=== PATIENT | male | born 1995 | race Caucasian/White ===

== ENCOUNTER 2021-10-07 09:20 | Emergency (ER) | payer OTHER, SELFPAY ==
[2021-10-07 09:26] VITALS: BP 137/82; PULSE 105; RESP 20; TEMP 36.8; O2SAT 98
--- NOTE | 2021-10-07 10:05 | ED.URI ---
HPI - URI/Sore Throat General Source: patient and RN notes reviewed History of Present Illness HPI Narrative: This is a patient who presented to urgent care with complaints of a fever cough and chest tightness due to coughing. The patient denies SOB, CP, palpitation, extremity numbness, lightheadedness, dizziness, constipation, diarrhea, chills, or fever. Related Data Allergies Allergy/AdvReac Type Severity Reaction Status Date / Time No Known Allergies Allergy Verified 10/07/21 09:59 Review of Systems Review of Systems: All systems reviewed & are unremarkable except as noted in HPI and below PMFSH Family History Family History (Updated 10/29/21 @ 10:50 by MARY ANNE Waldron) Other Family history non-contributory Exam Narrative: GENERAL: This is a well-nourished, well-developed patient, in no apparent distress. HEAD: normocephalic, atraumatic. EYES: PERRL. Sclera clear/white. Vision is grossly intact. EARS: External ears normal, auditory canals clear and without drainage, TMs normal without perforation. Hearing grossly intact. NOSE: External nose normal with no obvious nasal discharge, nares without redness, no rhinorrhea. THROAT: Mucous membranes moist, posterior pharynx clear. NECK: Neck supple, non-tender without lymphadenopathy, masses or thyromegaly. CARDIOVASCULAR: Regular rate and rhythm without murmurs, gallops, or rubs. RESPIRATORY: Clear to auscultation. Breath sounds equal bilaterally. No wheezes, rales, or rhonchi. GASTROINTESTINAL: Abdomen soft, non-tender, nondistended. Bowel sounds are active. No hepato-splenomegaly, or palpable masses. No guarding. SKIN: warm, intact with no suspicious lesions or rash, good texture and turgor. NEURO: awake, alert, and oriented to person, place and time. There were no obvious focal neurologic abnormalities. Steady gait EXTREMITIES: Normal range of motion. No edema. No calf tenderness. Negative Homans sign bilaterally. BACK: Nontender without deformity or crepitance. No flank tenderness. Course Course Emergency Course: Patient treated for viral illness with [id number] meds Vital Signs Vital signs: Vital Signs Temperature 98.2 F 10/07/21 09:26 Pulse Rate 105 H 10/07/21 09:26 Respiratory Rate 20 10/07/21 09:26 Blood Pressure 137/82 10/07/21 09:26 Pulse Oximetry 98 10/07/21 09:26 Temperature 98.2 F 10/07/21 09:26 Pulse Rate 105 H 10/07/21 09:26 Respiratory Rate 20 10/07/21 09:26 Blood Pressure 137/82 10/07/21 09:26 Pulse Oximetry 98 10/07/21 09:26 MDM - URI/Sore Throat Differential Diagnosis Differential diagnosis: Likely upper respiratory infection, viral infection and pharyngitis Discharge Plan Discharge Clinical Impression: Viral infection Patient Disposition: Home, Self-Care Condition: Stable Instructions: Antibiotic Form, Viral Syndrome (ED) Additional Instructions: This is likely viral illness, no antibiotic is needed at this time. Treatment is aimed toward your specific symptoms. You must treat your symptoms in order to feel better while the virus runs it's course. Recommend antihistamine such as Benadryl at night time and Claritin/Zyrtec/Ayanna during the day Use inhaler as needed for cough, wheezing, shortness of breath or chest tightness. -Hot steamy showers in the morning to help open up your sinuses -Hot tea with lemon and honey. A teaspoon of honey may help as a cough suppressant. -Increase fluid intake Frequent hand washing or hand digital designer is one of the best ways to prevent spread of infection. Please schedule a followup visit with your personal physician for further evaluation and treatment within 3-5days. Including recheck and discussion of your blood pressure. If your symptoms persist, change or worsen significantly before you can contact your personal physician then please, without delay, go to the emergency department for further evaluation. You will need to remain quarantine until
== END 2021-10-07 10:15 | disposition home or self-care (01) ==
PROVIDERS: Emergency Provider Nurse Practitioner
DX: B34.9 Viral infection, unspecified (principal); Z20.822 Contact with and (suspected) exposure to COVID-19
CPT/HCPCS: 87804; 99213; G0463

== ENCOUNTER → 2021-10-08 02:06 | Outpatient (CLI) | payer OTHER, SELFPAY ==
[2021-10-09 03:58] LABS: SARS-CoV-2 RNA PCR Negative
== END ==
PROVIDERS: Visit Provider Nurse Practitioner
DX: R68.89 Other general symptoms and signs (principal); Z20.822 Contact with and (suspected) exposure to COVID-19
CPT/HCPCS: C9803; U0003; U0005

== ENCOUNTER 2021-11-18 14:58 | Outpatient (CLI) | payer OTHER, SELFPAY ==
[2021-11-18 18:48] LABS: Hematocrit 43.2 % (42.0-52.0); Hemoglobin 15.6 g/dL (14.0-18.0); Mean Corpuscular HGB Conc 36.1 g/dl (32-36); Mean Corpuscular Hemoglobin 29.3 pg (26-34); Mean Corpuscular Volume 81.1 fl (80-100); Mean Platelet Volume 10.1 fl (7.4-10.4); Platelet Count Result 300 k/mm3 (150-375); Red Blood Count 5.33 M/mm3 (4.6-6.20); Red Cell Distribution Width 12.3 % (11.5-14.5); White Blood Count 7.3 K/mm3 (4.5-10.0)
[2021-11-18 18:53] LABS: Alanine Aminotransferase 120 U/L (4-50); Albumin Level 4.4 g/dL (3.5-5.1); Alkaline Phosphatase 70 U/L (38-126); Anion Gap 8 mmol/L (8-16); Aspartate Amino Transferase 56 U/L (17-59); Bilirubin,Total 1.3 mg/dL (0.2-1.3); Blood Urea Nitrogen 10 mg/dL (9-20); Calcium 9.8 mg/dL (8.4-10.2); Carbon Dioxide 23 mmol/L (22-30); Chloride 107 mmol/L (98-107); Cholesterol 141 mg/dL (0-200); Estimated Glomerular Filt Rate > 60; Glucose 116 mg/dL (65-110); HDL Direct 38 mg/dL; Potassium 4.4 mmol/L (3.4-5.0); Sodium 138 mmol/L (137-145); Triglycerides 100 mg/dL (<150)
[2021-11-18 19:05] LABS: LDL Cholesterol Direct 86 mg/dL
[2021-11-18 19:08] LABS: Hemoglobin A1C 5.6 % (<5.7)
== END 2021-11-18 14:59 | disposition home or self-care (01) ==
LOC: ANHBWCLAB 15:01
PROVIDERS: PCP Family Medicine; Visit Provider Family Medicine
DX: Z00.00 Encounter for general adult medical examination without abnormal findings (principal); E66.9 Obesity, unspecified
CPT/HCPCS: 36415; 80053; 80061; 83036; 85027

== ENCOUNTER 2021-12-27 13:54 | Outpatient (CLI) | payer OTHER, SELFPAY ==
[2021-12-27 18:54] LABS: Alanine Aminotransferase 69 U/L (4-50); Albumin Level 4.3 g/dL (3.5-5.1); Alkaline Phosphatase 64 U/L (38-126); Aspartate Amino Transferase 33 U/L (17-59); Bilirubin,Total 0.5 mg/dL (0.2-1.3)
[2021-12-27 19:25] LABS: Hepatitis B Surface Antigen Negative (Negative)
[2021-12-27 19:31] LABS: HAV RESULT Negative (Negative); Hepatitis B Core IgM Result Negative (Negative)
[2021-12-27 19:42] LABS: Hepatitis C Virus Antibody Negative (Negative)
== END 2021-12-27 13:55 | disposition home or self-care (01) ==
LOC: ANHBWCLAB 13:55
PROVIDERS: PCP Family Medicine; Visit Provider Family Medicine
DX: E66.9 Obesity, unspecified (principal); R74.8 Abnormal levels of other serum enzymes
CPT/HCPCS: 36415; 80074; 80076

== ENCOUNTER 2022-02-20 14:45 | Emergency (ER) | payer OTHER, SELFPAY ==
[2022-02-20 14:49] VITALS: BP 133/81; PULSE 101; RESP 16; TEMP 36.9; O2SAT 99
--- NOTE | 2022-02-20 14:50 | ED.URI ---
HPI - URI/Sore Throat General Chief Complaint: Upper Respiratory Infection Stated Complaint: nausea fever diahrrea sore throat Time Seen by Provider: 02/20/22 15:10 Source: patient and RN notes reviewed Mode of arrival: ambulatory Limitations: no limitations History of Present Illness HPI Narrative: 26-year-old male presents with concern for sore throat, cough, body aches, headache, fever, chills, nausea with 2 episodes of vomiting and 2 episodes of diarrhea. Reports his temperature was 104.2. He reports his lung feels tight and it seems hard to breathe at times. He reports symptoms started last night. He reports he is taken ibuprofen. Denies other [id number] intervention. MD elicited complaint: cough, sore throat and nasal congestion Related Data Allergies Allergy/AdvReac Type Severity Reaction Status Date / Time tetanus and diphtheria Allergy Unknown Verified 11/18/21 13:54 toxoids Review of Systems Review of Systems: CONSTITUTIONAL: Reports malaise, chills, sweats, fever. EYES: Denies visual changes, redness, or discharge. ENT: Reports rhinorrhea, congestion, sinus pain,and sore throat. CARDIOVASCULAR: Denies chest pain, palpitations, or edema. RESPIRATORY: Reports cough. Denies dyspnea. GASTROINTESTINAL: Denies abdominal pain. Reports nausea, vomiting, diarrhea SKIN: Denies rash or itching. MUSCULOSKELETAL: Reports myalgia. NEUROLOGIC: Reports headache. All systems reviewed & are unremarkable except as noted in HPI and below PMFSH Family History Family History Father Prediabetes Mother Diabetes mellitus Other Family history non-contributory Social History Social History Smoking status: Never smoker Alcohol intake: current Substance use: never Comments At time of signature, agree with nursing past medical, surgical, social and family history. There is no relevant family history pertinent to the presenting complaint Exam Narrative: GENERAL: Nontoxic-appearing and in no acute distress. HEAD: Normocephalic EYES: PERRLA, conjunctivae clear ENT: Nares clear, turbinates edematous and erythematous, clear discharge. Mucous membranes moist. TM pearly carter with dull light reflex bilaterally; no tragal tenderness. Oropharynx not erythematous without lesions. Tonsils not enlarged and without exudate, no drooling, no hoarseness, no trismus, uvula midline. NECK: Supple. No lymphadenopathy CHEST: Clear to auscultation, breath sounds equal. No wheezing, rhonchi, rales, or stridor. No respiratory distress, speaks in full sentences. HEART: Regular rate and rhythm. No murmur heard. SKIN: Warm, dry, no rash. NEURO: Alert and oriented x3. PSYCH: Normal mood and affect Course Course Emergency Course: Patient is aware of diagnosis, understands and agrees to treatment plan. Anticipatory guidance given. Patient agrees to follow-up as directed and is aware of reasons to seek care at the emergency department. Portions of this record may have been created with voice recognition software Level of Care: Express Care Visit Vital Signs Vital signs: Reviewed. MDM - URI/Sore Throat MDM Narrative Medical decision making narrative: Differential diagnosis considered: English virus, strep pharyngitis, allergic rhinitis, upper respiratory tract infection, sinusitis, rhinosinusitis, nasopharyngitis. viral pharyngitis, otitis media, otitis externa, pneumonia, bronchitis, viral cough syndrome, viral syndrome, and influenza. Exam findings show no acute concerns or changes; patient is non-toxic appearing and is in no distress. Patient is appropriate for outpatient treatment and follow-up. Lab Data Attestation: I reviewed the patient's lab results. Critical Care Time Critical Care Time Critical Care Time: No Discharge Plan Discharge Clinical Impression: COVID-19 Patient Disposition: Home, Self-Care Condition:
== END 2022-02-20 15:28 | disposition home or self-care (01) ==
PROVIDERS: Emergency Provider Nurse Practitioner; PCP Family Medicine
DX: U07.1 COVID-19 (principal)
CPT/HCPCS: 87081; 87426; 87804; 87880; 99213; C9803; G0463

== ENCOUNTER 2024-08-24 15:45 | Emergency (ER) | payer OTHER, SELFPAY ==
--- NOTE | ~2024-08-24 | XR_ITS ---
3 VIEWS LUMBAR SPINE Ordering provider: Lilly Quintero NP History: . felt pop when bending over, bilateral stiffness/pain . Comparison: None. FINDINGS: VERTEBRAL BODIES: No visible fracture or subluxation. DISK SPACES: Normal. SOFT TISSUES: Normal. IMPRESSION: No acute osseous abnormality lumbar spine. Reviewed, dictated and finalized at location A. RANCE AGENCY MANAGER
[2024-08-24 15:53] VITALS: BP 135/91; PULSE 88; RESP 20; TEMP 37.1; O2SAT 99
--- NOTE | 2024-08-24 16:12 | ED.BACK ---
HPI - Back Pain/Injury General Chief Complaint: Back Pain/Injury Stated Complaint: Back Pain Time Seen by Provider: 08/24/24 16:10 Source: patient, family, RN notes reviewed and old records reviewed Mode of arrival: ambulatory Limitations: no limitations History of Present Illness HPI Narrative: 29 year old male accompanied by spouse presents to express care with complaints of bending over sink brushing his teeth and when he bent over he felt a pop in his left lower back states it is difficult to ambulate. Patient reports pain is in left lower back and it radiates to leg, Patient has no SI pain noted on examination. Denies any saddle paraesthesia. Patient reports no history of previous back pain or any known recent injury. Patient has not taken any OTC medication for his discomfort before coming to clinic. MD elicited complaint: back pain Pertinent past history: other (none) Onset (ago): hour(s) (within past hour) Pain scale (0-10): 3 Location: lumbar spine Radiation: other (left leg) Exacerbating factors: movement and other (changing positions) Treatments prior to arrival: other (none) Work related injury: No Related Data Allergies Allergy/AdvReac Type Severity Reaction Status Date / Time tetanus and diphtheria AdvReac Severe Other Verified 08/24/24 16:00 toxoids Review of Systems Review of Systems: CONSTITUTIONAL: Denies fever, chills, or sweats. CARDIOVASCULAR: Denies chest pain, palpitations, or edema. RESPIRATORY: Denies cough or dyspnea. GASTROINTESTINAL: Denies abdominal pain, nausea, vomiting, or diarrhea. GENITOURINARY: Denies dysuria or hematuria. SKIN: Denies rash or itching. MUSCULOSKELETAL: Reports left lower back pain goes to leg also. or myalgia. NEUROLOGIC: Denies headache, numbness, or weakness. All systems reviewed & are unremarkable except as noted in HPI and below PMFSH Past Medical History Medical History Obesity Otitis externa Family History Family History Father Prediabetes Mother Diabetes mellitus Other Family history non-contributory Social History Social History Smoking status: Never smoker Alcohol intake: current Substance use: never Living arrangements: with family Gender identity (if verbalized by the patient): Male Comments At time of signature, agree with nursing past medical, surgical, social and family history. There is no relevant family history pertinent to the presenting complaint Exam Narrative: GENERAL: Well-appearing, well-nourished, and in no acute distress. HEAD: Normocephalic, atraumatic. EYES: PERRLA and EOMI. NECK: Supple. No lymphadenopathy. CHEST: Clear to auscultation. No respiratory distress. SAO2 99% on room air HEART: Regular rate and rhythm. Distal pulses palpable and equal, cap refill <3 seconds ABDOMEN: Soft, nontender, nondistended, normal active bowel sounds, no palpable or pulsatile masses. No CVA tenderness MUSCULOSKELETAL: Normal range of motion and strength in all extremities; 5/5 strength with hip flexion and extension, dorsiflexion and extension, knee flexion and extension, plantar flexion and extension. Normal sensation in dermatomal distributions with sensitivity to light touch and pain. No midline back tenderness to palpation. No paraspinal tenderness. Transfers from lying to sitting to standing slowly with some discomfort, sciatica left leg SKIN: Warm, dry, no rash. No ecchymosis, erythema, open wounds to back. NEURO: No focal deficits. Alert and oriented x3. Reflexes intact. Normal gait but guarded PSYCH: Normal mood and affect Course Course Emergency Course: Patient is aware of diagnosis, understands and agrees to treatment plan. Anticipatory guidance given. Patient agrees to follow-up as directed and is aware of reasons to seek care at the emergency department. Portions of this record may have been created with voice recognition software Level of Care: Express Care Visit Vital Signs Vital signs: Vital Signs Temperature 37.1 C 08/24/24 15:53 Pulse Rate 88 08/24/24 15:53 Respiratory Rate 20 08/24/24 15:53 Blood Pressure 135/91 H 08/24/24 15:53 Pulse Oximetry 99 08/24/24 15:53 Oxygen Delivery Room Air 08/24/24 15:53 Temperature 37.1 C 08/24/24 15:53 Pulse Rate 88 08/24/24 15:53 Respiratory Rate 20 08/24/24 15:53 Blood Pressure 135/91 H 08/24/24 15:53 Pulse Oximetry 99 08/24/24 15:53 Oxygen Delivery Room Air 08/24/24 15:53 Reviewed MDM - Back Pain/Injury MDM Narrative Medical decision making narrative: No risk factors or findings concerning for epidural abscess, diskitis, vertebral osteomyelitis, cord compression, cauda equina, vertebral fracture or bone malignancy, AAA, or pyelonephritis. Patient instructed to consider further imaging and workup through their primary care physician as an outpatient if symptoms persist. Differential Diagnosis Differential diagnosis: Likely lumbar radiculopathy, sciatica (left), strain of lumbar region and other (pain left lower back) Medical Records Attestation: I reviewed the patient's medical records. Imaging Data Attestation: I personally reviewed and interpreted this imaging study as follows: My impression: no osseous abnormalitylumbar spine Radiologist's impression: [address] [email or web address] [address] XRay Report Signed Patient: Hayden Brady : 1995 MR#: [id number] Age: 29 Acct:[id number] Loc: [facility] ADM Date: 08/24/24Attending Dr: Ordering Physician: Lilly Quintero APRN Date of Service: 08/24/24 Procedure(s): XR lumbar spine 2-3V Accession Number(s): [id number] cc: Toan Bernal MD; Lilly Quintero APRN~ 3 VIEWS LUMBAR SPINE Ordering provider: Lilly Quintero NP History: . felt pop when bending over, bilateral stiffness/pain . Comparison: None. FINDINGS: VERTEBRAL BODIES: No visible fracture or subluxation. DISK SPACES: Normal. SOFT TISSUES: Normal. IMPRESSION: No acute osseous abnormality lumbar spine. Reviewed, dictated and finalized at location A. FACTURING TECH Dictated By: Sina Rock MD 08/24/24 1640 Signed By: <Electronically signed by Sina Rock MD in OV> Critical Care Time Critical Care Time Critical Care Time: No Discharge Plan Discharge Clinical Impression: Low back pain, Sciatica Patient Disposition: Home, Self-Care Condition: Stable Instructions: Antibiotic Form, Low Back Strain (ED) Additional Instructions: Ice and heat to the area for 20-30 minutes Gentle stretching exercises Gentle massage Caution with lifting, bending, stooping, twisting Avoid pushing, pulling take muscle relaxants as directed--caution drowsiness and no driving or alcohol Anti-inflammatory medicine as directed--take with food He may take the muscle relaxant and anti-inflammatory at the same time Follow-up with your PCP if not improving in 5-7 days If your symptoms persist, change or worsen significantly before you can contact your personal physician then please, without delay, go to the emergency department for further evaluation. Follow-up with PCP in 7-10 days or sooner if needed Follow up with PCP soon in regards to your blood pressure which is elevated above threshold for referral. Blood pressure above 120/80 may indicate pre-hypertension. 135/91 Prescriptions: New prednisone 20 mg tablet 20 mg PO BID Qty: 10 0RF Rx Instructions: am and early pm with food cyclobenzaprine 10 mg tablet 10 mg PO TID Qty: 14 0RF Rx Instructions: no driving or operating machinery while taking this medication absolutely no alcohol while taking this medication Follow-up/Referrals: Toan Bernal MD [Primary Care Provider] - Stand Alone Forms: Work/School Release IP Time of Disposition: 17:02 Quality Amberly Coma Scale Eyes: Open Verbal: Oriented and Alert Motor: Follows Commands Amberly Coma Total Score: 15
== END 2024-08-24 17:07 | disposition home or self-care (01) ==
PROVIDERS: Emergency Provider Registered Nurse; PCP Family Medicine
DX: M54.50 Low back pain, unspecified (principal); M54.32 Sciatica, left side; E66.9 Obesity, unspecified; Z68.41 Body mass index [BMI] 40.0-44.9, adult
CPT/HCPCS: 72100; 99213; G0463

== ENCOUNTER 2025-03-01 09:03 | Emergency (ER) | payer OTHER, SELFPAY ==
[2025-03-01 09:05] VITALS: BP 144/88; PULSE 77; RESP 20; TEMP 36.2; O2SAT 100
--- NOTE | 2025-03-01 09:23 | ED.BACK ---
HPI - Back Pain/Injury General Chief Complaint: Back Pain/Injury Stated Complaint: Low Back Pain Time Seen by Provider: 03/01/25 09:23 Source: patient Mode of arrival: ambulatory Limitations: no limitations History of Present Illness HPI Narrative: 29 y/o male presented for c/o mid low back pain x2 days. 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 States he did this using different body positions. Pain is minimal at rest/sitting, worse when twisting or standing from a seated position. Denies pain radiating into the hips or legs, numbness, tingling, weakness of the lower extremities, or change in gait, saddle paresthesia or loss of bowel or bladder. Took occasional ibuprofen. Related Data Allergies Allergy/AdvReac Type Severity Reaction Status Date / Time tetanus and diphtheria AdvReac Severe Other Verified 03/01/25 09:13 toxoids Review of Systems Review of Systems: CONSTITUTIONAL: Denies body aches, fever, chills EYES: Denies visual changes CARDIOVASCULAR: Denies chest pain, palpitations, or edema. RESPIRATORY: Denies cough or dyspnea. GASTROINTESTINAL: Denies abdominal pain, nausea, vomiting, or diarrhea. SKIN: Denies rash, itching, or wounds. MUSCULOSKELETAL: reports back pain NEUROLOGIC: Denies headache, numbness, tingling, or weakness. All systems reviewed & are unremarkable except as noted in HPI and below PMFSH Past Medical History Medical History Obesity Otitis externa Family History Family History Father Prediabetes Mother Diabetes mellitus Other Family history non-contributory Social History Social History Smoking status: Never smoker Alcohol intake: current Substance use: never Living arrangements: with family Gender identity (if verbalized by the patient): Male Comments At time of signature, I have reviewed and agree with nursing past medical, surgical, social and family history unless otherwise noted. Please see nursing chart for further information. There is no relevant family history pertinent to the presenting complaint Exam Narrative: GENERAL: Well-appearing NECK: Supple. full ROM CHEST: Speaks in full sentences. No respiratory distress. HEART: Regular rate and rhythm. Normal and equal peripheral pulses. MUSC: No Vertebral point tenderness. Bilateral lumbar paraspinal tenderness with deep palpation. BLEs with normal strength and sensation, normal range of motion. endorses pain to low back with movement. No ecchymosis, No open wounds or bruising. alignment normal, pulse palpable and equal bilaterally, skin warm, dry, pink. Capillary refill less than 3 seconds. Gait steady. SKIN: Warm, dry, no rash. NEURO: Alert and oriented x3. Course Course Emergency Course: Patient is aware of diagnosis, understands and agrees to treatment plan. Anticipatory guidance given. Patient agrees to follow-up as directed and is aware of reasons to seek care at the emergency department. Portions of this record may have been created with voice recognition software Level of Care: Express Care Visit Vital Signs Vital signs: Vital Signs Temperature 97.2 F L 03/01/25 09:05 Pulse Rate 77 03/01/25 09:05 Respiratory Rate 20 03/01/25 09:05 Blood Pressure 144/88 H 03/01/25 09:05 Pulse Oximetry 100 03/01/25 09:05 Oxygen Delivery Room Air 03/01/25 09:05 Temperature 97.2 F L 03/01/25 09:05 Pulse Rate 77 03/01/25 09:05 Respiratory Rate 20 03/01/25 09:05 Blood Pressure 144/88 H 03/01/25 09:05 Pulse Oximetry 100 03/01/25 09:05 Oxygen Delivery Room Air 03/01/25 09:05 Reviewed MDM - Back Pain/Injury MDM Narrative Medical decision making narrative: Discussed physical exam findings consistent with low back strain. Reviewed prescriptions. Pressure decision making deferred imaging at this time. Advised supportive measures and s/s to go to the ER. Pt is stable and appropriate for outpt treatment and follow up with pcp. Differential Diagnosis Differential diagnosis: Likely lumbar radiculopathy, sciatica, strain of lumbar region, renal colic, pyelonephritis and discitis Discharge Plan Discharge Clinical Impression: Strain of lumbar region Patient Disposition: Home Condition: Stable Instructions: Antibiotic Form, Low Back Strain (ED) Additional Instructions: Please follow up with your Primary Care Doctor within 48-72 hours - call for an appointment. Avoid lifting. pushing. pulling, or anything that worsens the pain. Walking and other gentle exercising several times a week has been shown to improve back pain; bed rest is not recommended. Tylenol 1000mg every 8 hours Take steroid as directed Take Motrin 800mg every 8 hours with food for the next 2-3 days ( limit use while taking the steroid due to GI upset). Take muscle relaxers (cyclobenzaprine) every 8 hours as needed for muscle spasm- do not drive or make any important decisions while on this medication for it can make you drowsy. Over the counter pain cream like icy/hot or biofreeze, or Salon pas/lidocaine 4% patch. You may apply heat or cold to the area as needed. If you experience any worsening pain, swelling, numbness, weakness please go to ER. Contact your doctor or go to the emergency department if you develop problems with bladder or bowel function, weakness or loss of feeling in one or both of your legs, or any other serious concerns. Patient Language: Spanish Prescriptions: New cyclobenzaprine 10 mg tablet 10 mg PO TID PRN (Reason: muscle spasm) Qty: 10 0RF prednisone 50 mg tablet 50 mg PO DAILY Qty: 5 0RF Follow-up/Referrals: Dulce Maria Valladares APRN [Primary Care Provider] - Stand Alone Forms: Work/School Release IP Time of Disposition: 09:31
--- OUTSIDE RECORDS SUMMARY | 2025-03-01 09:44 | XMS_ITS | Clinical Summary ---
Author Organization [facility] Address [address] [place] [address] Care Team Providers Care Log Rafter Name Role Phone Unavailable Primary Care Provider Unavailabl e Source Comments [facility],non-owned Affiliates and Associated Physician Practices is amultiple site organization consisting of ambulatory clinics and hospital sitesin [place], [place], [place] and [place]. This disclosure is being madepursuant to the Care Everywhere program and may not contain all information available regarding this patient. Last updated 18.[facility] [employer] Allergies Active Allergy Reactions Criticality Noted Date Comments Tetanus Toxoid Swelling 11/07/2018 Medications * Be aware that medications may not be up to date on this document. Alwaysverify current medications with the patient. fluticasone propionate (FLONASE) 50 MCG/ACT nasal spray [place] 2 sprays into each nostril once daily 1 bottles 11/07/2018 Active Social History Tobacco Use Types Packs/Day Years Used Date Smoking Tobacco: Never Assessed Sex and Gender Information Value Date Recorded Sex Assigned at Not on file Legal Sex Male 3:10 PM CDT Gender Identity Not on file Sexual Orientation Not on file Last Filed Vital Signs Vital Sign Reading Time Taken Comments Blood Pressure 134/62 11/07/2018 3:51 PM APPLICATIONS SPECIALIST Pulse 86 11/07/2018 3:51 PM APPLICATIONS SPECIALIST Temperature 36.8 C (98.3 F) 11/07/2018 3:51 PM APPLICATIONS SPECIALIST Respiratory Rate - - Oxygen Saturation 97% 11/07/2018 3:51 PM APPLICATIONS SPECIALIST Inhaled Oxygen Concentration - - Weight 117 kg (258 lb) 11/07/2018 3:51 PM APPLICATIONS SPECIALIST Height 180.3 cm (5' 11 ) 11/07/2018 3:51 PM APPLICATIONS SPECIALIST Body Mass Index 35.98 11/07/2018 3:51 PM APPLICATIONS SPECIALIST Plan of Treatment Health Maintenance Due Date Last Done Comments HIV SCREENING 2011 HEPATITIS C SCREENING 05/16/2014 DTAP/TDAP/TD VACCINES (1 - Tdap) 2015 HEPATITIS B VACCINE (1 of 3 - 19+ 3-dose series) 2015 COVID-19 VACCINE (3 - 2024-2 5 season) 2024 08/18/2021, 07/27/2021 DEPRESSION SCREENING 10/12/2024 INFLUENZA VACCINE (Season Ended) 2025 ZOSTER VACCINE (1 of 2) 2046 HIB VACCINE Aged Out No longer eligi ble based on patient's age to complete this topic HPV VACCINE Aged Out No longer eligi ble based on patient's age to complete this topic MENINGOCOCCAL (Group B) VACCINE SHARED DECISION-MAKING Aged Out No longer eligible based on patient's age to complete this topic MENINGOCOCCAL GROUPS A/C/Y/W VACCINE Aged Out No longer eligible b ased on patient's age to complete this topic PNEUMOCOCCAL VACCINE Aged Out No long er eligible based on patient's age to complete this topic Insurance
--- OUTSIDE RECORDS SUMMARY | 2025-03-01 09:44 | XMS_ITS | Clinical Summary ---
Author Organization [facility] Address [address] [place] [id number] Care Team Providers Care Flash Drier Operator Name Role Phone Toan Bernal MD Primary Care Provider [phone] [phone] Active Problems No known active problems Social History Tobacco Use Types Packs/Day Years Used Date Smoking Tobacco: Never Assessed Sex and Gender Information Value Date Recorded Sex Assigned at Not on file Legal Sex Male 7:09 PM CDT Gender Identity Not on file Sexual Orientation Not on file Last Filed Vital Signs Vital Sign Reading Time Taken Comments Blood Pressure 122/84 02/02/2023 1:55 PM CDT Pulse - - Temperature - - Respiratory Rate - - Oxygen Saturation - - Inhaled Oxygen Concentration - - Weight 132.5 kg (292 lb) 02/02/2023 1:55 PM CDT Height 177.8 cm (5' 10 ) 02/02/2023 1:55 PM CDT Body Mass Index 41.9 02/02/2023 1:55 PM CDT Plan of Treatment Health Maintenance Due Date Last Done Comments DTAP/TDAP/TD VACCINES (1 - Tdap) 2015 HEPATITIS B VACCINES (1 of 3 - 19+ 3-dose series) 2015 INFLUENZA VACCINE (#1) 2024 HPV VACCINES Aged Out No longer eligi ble based on patient's age to complete this topic Insurance [employer] OPEN ACCESS Care Teams Flash Drier Operator Relationship Specialty Start Date End Date Toan Bernal MD PCP - General Family Practice 02/02/23
== END 2025-03-01 09:35 | disposition home or self-care (01) ==
PROVIDERS: Emergency Provider Nurse Practitioner Family; PCP Nurse Practitioner Adult Health
DX: S39.012A Strain of muscle, fascia and tendon of lower back, initial encounter (principal); X50.0XXA Overexertion from strenuous movement or load, initial encounter; Y99.0 Civilian activity done for income or pay; E66.9 Obesity, unspecified; Z68.39 Body mass index [BMI] 39.0-39.9, adult
CPT/HCPCS: 99213; G0463

== ENCOUNTER 2025-07-31 15:46 | Emergency (ER) | payer OTHER, SELFPAY ==
--- NOTE | ~2025-07-31 | XR_ITS ---
XR ankle LT min 3V INDICATION: injury . COMPARISON: None. FINDINGS: Frontal, lateral and oblique views of the left ankle demonstrate no acute fracture or dislocation. The ankle mortise is intact. Degenerative calcaneal spurs are noted. IMPRESSION: No acute fracture or dislocation. Reviewed, dictated and finalized at location S.
[2025-07-31 15:52] VITALS: BP 145/88; PULSE 91; RESP 20; TEMP 36.4; O2SAT 98
--- NOTE | 2025-07-31 16:39 | ED_ITS ---
HPI - Extremity Injury (Lower) General Chief Complaint: Extremity Injury, Lower Stated Complaint: Left Ankle Injury Time Seen by Provider: 07/31/25 16:25 Source: patient and RN notes reviewed Mode of arrival: ambulatory Limitations: no limitations History of Present Illness HPI Narrative: 30-year-old male patient Presents Express Care complaining of injury to left ankle. Patient reports approximately 1-2 hours ago patient was walking outside his house only stepped on a gumball plant a fell from a tree and he rolled his left ankle. Patient denies falling to the ground or any other injuries. Patient is able to bear weight his left ankle. Patient has not done anything to help with the pain he came right away for evaluation. Patient denies any significant past medical history. Related Data Allergies Allergy/AdvReac Type Severity Reaction Status Date / Time tetanus and diphtheria AdvReac Severe Other Verified 07/31/25 15:55 toxoids Review of Systems Review of Systems: CONSTITUTIONAL: Denies fever, chills, or sweats. EYES: Denies visual changes, redness, or discharge. ENT: Denies rhinorrhea, congestion, sore throat, or otalgia. CARDIOVASCULAR: Denies chest pain, palpitations, or edema. RESPIRATORY: Denies cough or dyspnea. GASTROINTESTINAL: Denies abdominal pain, nausea, vomiting, or diarrhea. GENITOURINARY: Denies dysuria or hematuria. SKIN: Denies rash, wound, or itching. MUSCULOSKELETAL: Denies back pain, joint pain, or myalgia. Positive for left ankle injury and swelling NEUROLOGIC: Denies headache, numbness, or weakness. PSYCHIATRIC: Denies anxiety or depression. All other systems reviewed are negative, except as documented in HPI. [facility] Past Medical History Medical History Otitis externa Obesity Family History Family History Father Prediabetes Mother Diabetes mellitus Other Family history non-contributory Social History Social History Smoking status: Never smoker Alcohol intake: current Substance use: never Living arrangements: with family Gender identity (if verbalized by the patient): Male Comments At the time of my signature, I reviewed and agree with the nursing past medical, surgical, social, and family history. There is no relevant family history pertinent to the patient complaint. Exam Narrative: GENERAL: This is a well-nourished, well-developed adult, in no apparent distress. They are non ill-appearing, nontoxic appearing. HEAD: normocephalic, atraumatic. EYES: Sclera clear/white. Vision is grossly intact. Conjunctiva normal. Extraocular movement intact. EARS: External ears normal Hearing grossly intact. NOSE: External nose normal THROAT: Mucous membranes moist NECK: Neck supple CARDIOVASCULAR: Regular rate and rhythm RESPIRATORY: Respiratory rate normal, respiratory effort nonlabored, no respiratory distress NEURO: awake, alert, and oriented to person, place and time. There were no obvious focal neurologic abnormalities. EXTREMITIES: Left ankle: No obvious deformity, injury, bruising, redness. Mild swelling to the anterior lateral ankle. Normal range of motion. Lateral tenderness to palpation. Capillary refill less than 3 seconds. Left pedal Pulse 2 +palpable. Normal sensation. Neurovascular status intact distal injury. Patient with a wiggle his toes. Negative Fernandez's test. BACK: Nontender without deformity. Course Course Emergency Course: Portions of this record may have been created with voice recognition software Level of Care: Express Care Visit Vital Signs Vital signs: Vital Signs Temperature 97.6 F 07/31/25 15:52 Pulse Rate 91 07/31/25 15:52 Respiratory Rate 20 07/31/25 15:52 Blood Pressure 145/88 H 07/31/25 15:52 Pulse Oximetry 98 07/31/25 15:52 Oxygen Delivery Room Air 07/31/25 15:52 Temperature 97.6 F 07/31/25 15:52 Pulse Rate 91 07/31/25 15:52 Respiratory Rate 20 07/31/25 15:52 Blood Pressure 145/88 H 07/31/25 15:52 Pulse Oximetry 98 07/31/25 15:52 Oxygen Delivery Room Air 07/31/25 15:52 Reviewed MDM - Extremity Injury (Lower) MDM Narrative Medical decision making narrative: X-ray left ankle is negative for any fractures or acute findings. Likely an ankle sprain. Patient given Chapo wrap for compression. Discussed rice therapy. Discussed physical exam findings. Advised supportive measures and signs/symptoms to go to the ER. Pt is appropriate for outpt treatment and f/u. Differential Diagnosis Differential diagnosis: Likely ankle sprain and strain, ankle fracture and other (Ankle contusion) Imaging Data Radiologist's impression: ITS Impressions Ankle X-Ray 07/31/25 16:20 IMPRESSION: No acute fracture or dislocation. Critical Care Time Critical Care Time Critical Care Time: No Discharge Plan Discharge Clinical Impression: Injury of ankle, left Qualifiers: Encounter type: initial encounter Qualified Code(s): S99.912A - Unspecified injury of left ankle, initial encounter Patient Disposition: Home Condition: Stable Instructions: Ankle Sprain (DC) Additional Instructions: The x-ray of your left ankle is negative for any fractures or acute findings. Rest and elevate the leg; bear weight as tolerated Apply ice 15-20 minute intervals several times a day Keep it wrapped with CHAPO or use a soft ankle splint You may take ibuprofen 600 mg to 800 mg every 6-8 hours. Do not exceed more than 800 mg of ibuprofen per dose. Do not exceed more than 3200 mg ibuprofen in a day. You may take up to 1000 mg Tylenol every 6-8 hours. Do not exceed 1000 mg per dose, do exceed more than 4000 mg of Tylenol in a day. Follow up with your primary care provider or orthopedist as needed in 1-2 weeks especially if pain is persisting after 10 days. Patient Language: Italian Prescriptions: No Action cyclobenzaprine 10 mg tablet 10 mg PO TID PRN (Reason: muscle spasm) Qty: 10 0RF prednisone 50 mg tablet 50 mg PO DAILY Qty: 5 0RF Follow-up/Referrals: Terell Strauss MD [Physician, Orthopedics] Dulce Maria Valladares APRN [Primary Care Provider, Family Practice] Stand Alone Forms: Work/School Release IP Time of Disposition: 16:38
--- OUTSIDE RECORDS SUMMARY | 2025-07-31 18:21 | XMS_ITS | Clinical Summary ---
Author Organization [facility])[3] [employer] [place] Address [address] [place] [id number] Care Team Providers Care Patent Leather Sorter Name Role Phone Toan Bernal MD Primary Care Provider [phone] Active Problems No known active problems Social [...] 1:55 PM CDT Height 177.8 cm (5' 10) 02/02/2023 1:55 PM CDT Body Mass Index 41.9 02/02/2023 1:55 PM CDT Plan of Treatment Health Maintenance Due Date Last Done Comments DTAP/TDAP/TD VACCINES (1 - Tdap) 2015 HEPATITIS B VACCINES (1 of 3 - 19+ 3-dose series) 06/2015 HPV VACCINES (1 - 3-dose SCDM series) 2023 INFLUENZA VACCINE (#1) 2025 Insurance [employer] OPEN ACCESS Care Teams Patent Leather Sorter Relationship Specialty Start Date End Date Toan Bernal MD PCP - General Family Practice 02/02/23
--- OUTSIDE RECORDS SUMMARY | 2025-07-31 18:21 | XMS_ITS | Clinical Summary ---
Author Organization [facility] Address [address] [place] [address] Care Team Providers Care Custom Tailor Name Role Phone Unavailable Primary Care Provider Unavailabl e Source Comments [facility],non-owned Affiliates and Associated Physician Practices is amultiple site organization consisting of ambulatory clinics and hospital sitesin [place], [place], [place] and [place]. This disclosure is being madepursuant to the Care Everywhere program and may not contain all information available regarding this patient. Last updated 18.[facility] [employer] Allergies Active Allergy Reactions Criticality Noted Date Comments Tetanus Toxoid Swelling 11/07/2018 Medications * Be aware that medications may not be up to date on this document. Alwaysverify current medications with the patient. fluticasone propionate (FLONASE) 50 MCG/ACT nasal spray [place] 2 sprays into each nostril once daily [...] Comments Blood Pressure 134/62 11/07/2018 3:51 PM PAINT LINE OPERATOR Pulse 86 11/07/2018 3:51 PM PAINT LINE OPERATOR Temperature 36.8 C (98.3 F) 11/07/2018 3:51 PM PAINT LINE OPERATOR Respiratory Rate - - Oxygen Saturation 97% 11/07/2018 3:51 PM PAINT LINE OPERATOR Inhaled Oxygen Concentration - - Weight 117 kg (258 lb) 11/07/2018 3:51 PM PAINT LINE OPERATOR Height 180.3 cm (5' 11) 11/07/2018 3:51 PM PAINT LINE OPERATOR Body Mass Index 35.98 11/07/2018 3:51 PM PAINT LINE OPERATOR Plan of Treatment Health Maintenance Due Date Last Done Comments HIV SCREENING 2011 HEPATITIS C SCREENING 05/16/2014 DTAP/TDAP/TD VACCINES (1 - Tdap) 2015 HEPATITIS B VACCINE (1 of 3 - 19+ 3-dose series) 2015 HPV VACCINE (1 - 3-dose SCDM series) 2023 DEPRESSION SCREENING 10/12/2024 COVID-19 VACCINE (3 - 2024-2 6 season) 2025 08/18/2021, 07/27/2021 INFLUENZA VACCINE (#1) 2025 ZOSTER VACCINE (1 of 2) 2046 [...]
== END 2025-07-31 16:50 | disposition home or self-care (01) ==
PROVIDERS: PCP Nurse Practitioner Adult Health
DX: S99.912A Unspecified injury of left ankle, initial encounter (principal); W22.8XXA Striking against or struck by other objects, initial encounter; E66.9 Obesity, unspecified; Z68.41 Body mass index [BMI] 40.0-44.9, adult
CPT/HCPCS: 73610; 99213; G0463

== ENCOUNTER 2025-08-14 15:00 | Outpatient (CLI) | payer OTHER, SELFPAY ==
--- OUTSIDE RECORDS SUMMARY | 2025-08-14 15:23 | XMS_ITS | Clinical Summary ---
Author Organization [facility] Address [address] [place] [address] Care Team Providers Care Substation Operator Helper Generation Name Role Phone Unavailable Primary Care Provider Unavailabl e Source Comments [facility],non-owned Affiliates and Associated Physician Practices is amultiple site organization consisting of ambulatory clinics and hospital sitesin [place], [place], [place] and [place]. This disclosure is being madepursuant to the Care Everywhere program and may not contain all information available regarding this patient. Last updated 18.[facility] Allergies Active Allergy Reactions Criticality Noted Date Comments Tetanus Toxoid Swelling 11/07/2018 Medications * Be aware that medications may not be up to date on this document. Alwaysverify current medications with the patient. fluticasone propionate (FLONASE) 50 MCG/ACT nasal spray [place] 2 sprays into each nostril once daily [...] Comments Blood Pressure 134/62 11/07/2018 3:51 PM SPRAY CREW Pulse 86 11/07/2018 3:51 PM SPRAY CREW Temperature 36.8 C (98.3 F) 11/07/2018 3:51 PM SPRAY CREW Respiratory Rate - - Oxygen Saturation 97% 11/07/2018 3:51 PM SPRAY CREW Inhaled Oxygen Concentration - - Weight 117 kg (258 lb) 11/07/2018 3:51 PM SPRAY CREW Height 180.3 cm (5' 11) 11/07/2018 3:51 PM SPRAY CREW Body Mass Index 35.98 11/07/2018 3:51 PM SPRAY CREW Plan of Treatment Health Maintenance Due Date [...]
--- OUTSIDE RECORDS SUMMARY | 2025-08-14 15:23 | XMS_ITS | Clinical Summary ---
Author Organization [facility] [employer] [place] Address [address] [place] [phone] Care Team Providers Care Nonprofit Fundraiser Name Role Phone Toan Bernal MD Primary Care Provider [phone] Active Problems No known active problems Social [...] 2025 Insurance [employer] OPEN ACCESS Care Teams Nonprofit Fundraiser Relationship Specialty Start Date End Date Toan Bernal MD PCP - General Family Practice 02/02/23
[2025-08-14 19:14] LABS: Hematocrit 44.9 % (42.0-52.0); Hemoglobin 15.7 g/dL (14.0-18.0); Mean Corpuscular HGB Conc 35.0 g/dl (32-36); Mean Corpuscular Hemoglobin 28.9 pg (26-34); Mean Corpuscular Volume 82.7 fl (80-100); Platelet Count Result 317 k/mm3 (150-375); Red Blood Count 5.43 M/mm3 (4.6-6.20); White Blood Count 8.5 K/mm3 (4.5-10.0)
[2025-08-14 19:25] LABS: Alanine Aminotransferase 93 U/L (6-50); Albumin Level 4.4 g/dL (3.5-5.1); Alkaline Phosphatase 58 U/L (38-126); Anion Gap 6 mmol/L (4-12); Aspartate Amino Transferase 63 U/L (17-59); Bilirubin,Total 0.7 mg/dL (0.2-1.3); Blood Urea Nitrogen 15 mg/dL (9-20); Calcium 9.3 mg/dL (8.4-10.2); Carbon Dioxide 26 mmol/L (22-30); Chloride 105 mmol/L (98-107); Cholesterol 155 mg/dL (0-200); Estimated Glomerular Filt Rate > 60; Glucose 128 mg/dL (65-110); HDL Direct 38 mg/dL; Potassium 4.5 mmol/L (3.4-5.0); Sodium 137 mmol/L (137-145); Total Protein 7.7 g/dL (6.3-8.2); Triglycerides 111 mg/dL (<150)
[2025-08-14 20:25] LABS: Hemoglobin A1C 6.0 % (<5.7)
== END 2025-08-14 15:01 | disposition home or self-care (01) ==
LOC: ANHBWCLAB 15:02
PROVIDERS: PCP Nurse Practitioner Adult Health; Visit Provider Nurse Practitioner Adult Health
DX: Z00.00 Encounter for general adult medical examination without abnormal findings (principal); E66.01 Morbid (severe) obesity due to excess calories
CPT/HCPCS: 36415; 80053; 80061; 83036; 85027